=== PATIENT | female | born 1990 | race Two or more races ===

== ENCOUNTER → 2021-11-21 14:04 | Outpatient (BNVA) | payer OTHER, SELFPAY | PROVIDERS: Visit Provider Advanced Practice Midwife ==

== ENCOUNTER 2021-12-05 08:35 | Outpatient (REF) | payer OTHER, SELFPAY ==
[2021-12-06 13:51] LABS: CT PCR NOT DETECTED (Not Detect.); NG PCR NOT DETECTED (Not Detect.)
[2021-12-07 08:46] LABS: BV Int Neg Control Negative (Negative); BV Int Pos Control Positive (Positive)
[2021-12-09 07:42] LABS: HPV mRNA E6/E7 rflx Not Detected (Not Detected)
== END 2021-12-05 08:36 | disposition home or self-care (01) ==
LOC: HO.LAB 08:35
PROVIDERS: Visit Provider Advanced Practice Midwife
DX: Z12.4 Encounter for screening for malignant neoplasm of cervix (principal); Z11.51 Encounter for screening for human papillomavirus (HPV); Z20.2 Contact with and (suspected) exposure to infections with a predominantly sexual mode of transmission; E28.2 Polycystic ovarian syndrome; E66.01 Morbid (severe) obesity due to excess calories; Z87.42 Personal history of other diseases of the female genital tract
CPT/HCPCS: 87480; 87491; 87510; 87591; 87624; 87660; 88142

== ENCOUNTER 2022-12-17 09:40 | Outpatient (REF) | payer OTHER, SELFPAY ==
[2022-12-17 17:33] LABS: CT PCR NOT DETECTED (Not Detect.); NG PCR NOT DETECTED (Not Detect.)
[2022-12-18 11:19] LABS: BV Int Neg Control Negative (Negative); BV Int Pos Control Positive (Positive)
[2022-12-20 09:39] LABS: HPV mRNA E6/E7 rflx Not Detected (Not Detected)
== END 2022-12-17 09:41 | disposition home or self-care (01) ==
LOC: HO.LNP 09:40
PROVIDERS: Visit Provider Advanced Practice Midwife
DX: Z12.4 Encounter for screening for malignant neoplasm of cervix (principal); Z11.51 Encounter for screening for human papillomavirus (HPV); Z11.3 Encounter for screening for infections with a predominantly sexual mode of transmission; Z20.2 Contact with and (suspected) exposure to infections with a predominantly sexual mode of transmission
CPT/HCPCS: 0353U; 87480; 87510; 87624; 87660; 88142

== ENCOUNTER 2023-12-20 09:21 | Outpatient (AMB) | payer OTHER, SELFPAY ==
--- NOTE | 2023-12-20 09:24 | MHC.OFFVIS ---
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 she found this practice by Googleing it, she has very poor insurance through [employer]. She has a primary care provider, that she has never met that is in [place], whose visits with her are only by phone and she has been calling for appointments and she can never be seen and she has never ever seen the provider in-person. she has had lab work but it was more than a couple of years ago, that she had fasting lab work she was told in the past that she has pre diabetes and that she has PCOS she gets her period about every 3 months she uses condoms for control when she has sex. She was on metformin and something for blood pressure years ago but it never got refilled/reordered. She gets big bills when she does come here for things that were not covered by the insurance. She had a history of an abnormal Pap smear many years ago in 2013 but none since and her last 2 Pap smears here were negative. Would like testing for STIs she would like some basic testing if I can order it. [facility] Medical History Prediabetes History of irregular menstrual bleeding Obesity, morbid, BMI 40.0-49.9 PCOS (polycystic ovarian syndrome) Social History (Reviewed 12/20/23 @ 09:28 by Rehan Rubalcava [facility]) Alcohol intake: never Patient Tobacco Use Status: Former Tobacco user Tobacco use type: Cigarette Gender identity: Female Female Reproductive History Menstrual Age of Menarche: 10 Duration of menses: other Date of last menstrual period: 10/11/23 control method: none Total pregnancies: 0 Date of last pap smear: 12/18/22 (neg.previous pap,12/12/21,neg.) History of abnormal pap smear: Yes (2014,abn.pap) Physical Exam Vital Signs: Last Vital Signs BP 126/70 12/20/23 09:25 BMI result Body Mass Index 46.9 Const General: healthy appearing, comfortable, no acute distress, well developed and alert Nutritional Appearance: average body habitus and obese Orientation/consciousness: patient oriented x3 Limitations: no limitations HEENT Head: Yes normocephalic Neck Neck: Yes normal visual inspection Chest Chest palpation & inspection: normal inspection of the chest Breast/axilla inspection: normal inspection of the breasts and normal inspection of the axillae Breast/axilla palpation: normal palpation of the breasts and normal palpation of the axillae Resp Effort & Inspection: normal respiratory effort GI Inspection: Yes normal to inspection, No Abdominal wall edema and No distended Palpation (GI): Soft to palpation and nontender Other: Limited by adipose vagina normal discharge appears within normal limits possibly with start of menses. Cervix nulliparous long thick closed mobile nontender adnexa nontender uterus nontender though difficult to fully palpate secondary to adipose good tone with Kegel General: Yes bladder normal to palpation External Female Exam: normal external appearance and normal appearance of the urethra Speculum Exam - Vagina: normal appearance of the vagina, normal palpation and normal vaginal discharge Speculum Exam - Cervix: normal appearance of the cervix, normal palpation and nontender Bimanual exam- vagina & uterus: normal bimanual exam, normal palpation, uterine size normal, bladder normal to palpation, consistency normal, normal palpation, uterine mobility normal, uterine shape normal, No Cervical tenderness present, non-tender and no cervical motion tenderness Bimanual Exam- Adnexa, other: normal adnexae, no masses, normal and No adnexal tenderness Neuro General: patient oriented x3 Assessment & Plan Assessment & Plan (1) Prediabetes: Code(s): R73.03 - Prediabetes (2) Cervical cancer screening: Comment: 12/05/2021 Pap equals negative with negative HPV; 12/17/2022 Pap is negative with negative HPV. Code(s): Z12.4 - Encounter for screening for malignant neoplasm of cervix (3) Potential exposure to STD: Code(s): Z20.2 - Contact with and (suspected) exposure to infections with a predominantly sexual mode of transmission (4) History of irregular menstrual bleeding: Code(s): Z87.42 - Personal history of other diseases of the female genital tract (5) Obesity, morbid, BMI 40.0-49.9: Code(s): E66.01 - Morbid (severe) obesity due to excess calories (6) PCOS (polycystic ovarian syndrome): Code(s): E28.2 - Polycystic ovarian syndrome Plan -----Discussed in this visit the following: healthy balanced diet, regular and consistent exercise, getting recommended health screens, doing the best she can for her particular health concerns, kegel exercises, pap smear screening and followup recommendations, mammography screening and SBE, normal changes in cycles in her life stage--- . Discussed her long standing knowledge of her diagnosis of PCOS she has hirsutisum she is overweight she has the irregular periods and the pre diabetes.. She does not need any further testing to establish this diagnosis Much. of visit was spent exploring with the patient her apparent lack of access to comprehensive primary care that is meaningful to her and maybe helpful in helping her achieve life and health goals. the She by her history has a very hard time getting through to the office of her primary care provider she is never seen her personally and all cares by phone and she has not had fasting blood work that she should probably have in a prolonged amount of time. She has been getting bills for things that are not covered by her insurance so while she wanted blood work to check for HIV and other STDs I offered to minimally add on of fasting/random glucose to her labs if she is going anyway as well as a TSH she does not need workup for PCOS as she already has that diagnosis. I asked her to start keeping better track of her periods and anything she can do to help herself eat better and try to lose weight would be beneficial to her health because once the changes start happening they are very difficult to completely undo. She lives by herself she is 1 brother and his family in the area but they are moving to [place] and she works 2 jobs just to get by 1 at [employer] and then after that at [employer]. She says she has been told that she makes too much for [employer]. She has tried to get on the portal but has difficulty with it I asked her to call Saturday for the results of the blood tests I also suggested that she consider checking here at the [facility] for primary care and also the [facility] office site as she lives in [place] and works in the [employer]. Orders: Orders Glucose Random Today E28.2 - Polycystic ovarian syndrome, E66.01 - Morbid (severe) obesity due to excess calories, R73.03 - Prediabetes, Z12.4 - Encounter for screening for malignant neoplasm of cervix, Z20.2 - Contact with and (suspected) exposure to infections with a predominantly sexual mode of transmission, Z87.42 - Personal history of other diseases of the female genital tract HIV Ab/Ag Today E28.2 - Polycystic ovarian syndrome, E66.01 - Morbid (severe) obesity due to excess calories, R73.03 - Prediabetes, Z12.4 - Encounter for screening for malignant neoplasm of cervix, Z20.2 - Contact with and (suspected) exposure to infections with a predominantly sexual mode of transmission, Z87.42 - Personal history of other diseases of the female genital tract Syphilis Screen Today E28.2 - Polycystic ovarian syndrome, E66.01 - Morbid (severe) obesity due to excess calories, R73.03 - Prediabetes, Z12.4 - Encounter for screening for malignant neoplasm of cervix, Z20.2 - Contact with and (suspected) exposure to infections with a predominantly sexual mode of transmission, Z87.42 - Personal history of other diseases of the female genital tract Thyroid Stimulating Hormone Today E28.2 - Polycystic ovarian syndrome, E66.01 - Morbid (severe) obesity due to excess calories, R73.03 - Prediabetes, Z12.4 - Encounter for screening for malignant neoplasm of cervix, Z20.2 - Contact with and (suspected) exposure to infections with a predominantly sexual mode of transmission, Z87.42 - Personal history of other diseases of the female genital tract Hepatitis B Surface Antigen Today E28.2 - Polycystic ovarian syndrome, E66.01 - Morbid (severe) obesity due to excess calories, R73.03 - Prediabetes, Z12.4 - Encounter for screening for malignant neoplasm of cervix, Z20.2 - Contact with and (suspected) exposure to infections with a predominantly sexual mode of transmission, Z87.42 - Personal history of other diseases of the female genital tract Hepatitis C Antibody Today E28.2 - Polycystic ovarian syndrome, E66.01 - Morbid (severe) obesity due to excess calories, R73.03 - Prediabetes, Z12.4 - Encounter for screening for malignant neoplasm of cervix, Z20.2 - Contact with and (suspected) exposure to infections with a predominantly sexual mode of transmission, Z87.42 - Personal history of other diseases of the female genital tract CT NG by PCR Today Z01.419 - Encounter for gynecological examination (general) (routine) without abnormal findings Bacterial Vaginosis Panel Today Z20.2 - Contact with and (suspected) exposure to infections with a predominantly sexual mode of transmission Coding Level of Care Code Est Pt Prev Care 18-39y(69204) Diagnoses Prediabetes R73.03 Cervical cancer screening Z12.4 Potential exposure to STD Z20.2 History of irregular menstrual bleeding Z87.42 Obesity, morbid, BMI 40.0-49.9 E66.01 PCOS (polycystic ovarian syndrome) E28.2
[2023-12-20 09:25] VITALS: BP 126/70; BMI 46.9
== END 2023-12-20 10:39 | disposition home or self-care (01) ==
LOC: HO.HWSM 09:21
PROVIDERS: Visit Provider Advanced Practice Midwife
DX: Z01.419 Encounter for gynecological examination (general) (routine) without abnormal findings (principal); R73.03 Prediabetes; E28.2 Polycystic ovarian syndrome; Z20.2 Contact with and (suspected) exposure to infections with a predominantly sexual mode of transmission; Z87.42 Personal history of other diseases of the female genital tract; E66.01 Morbid (severe) obesity due to excess calories
CPT/HCPCS: 99395

== ENCOUNTER 2023-12-20 09:21 | Outpatient (REF) | payer OTHER, SELFPAY ==
[2023-12-20 13:53] LABS: Syphilis Screen Nonreactive (Nonreactive)
[2023-12-20 13:57] LABS: HBsAGNum1 0.29 S/CO (0.00-0.99); HIV AB/AG Nonreactive (Nonreactive); HIV Num 1 0.05 S/CO (0.00-0.99); Hepatitis B Surface Antigen Negative (Negative); ~HepC Num1 0.41 S/CO (0.00-0.79); ~Hepatitis C Antibody Nonreactive (Nonreactive)
[2023-12-20 14:06] LABS: Glucose Random 156 mg/dL (60-115)
[2023-12-20 14:13] LABS: Thyroid Stimulating Hormone 1.67 uIU/mL (0.32-4.0)
[2023-12-21 09:54] LABS: CT PCR NOT DETECTED (Not Detect.); NG PCR NOT DETECTED (Not Detect.)
[2023-12-21 11:38] LABS: BV Int Neg Control Negative (Negative); BV Int Pos Control Positive (Positive)
== END 2023-12-20 09:22 | disposition home or self-care (01) ==
LOC: HO.HHCL 09:21
PROVIDERS: Visit Provider Advanced Practice Midwife
DX: Z20.2 Contact with and (suspected) exposure to infections with a predominantly sexual mode of transmission (principal); R73.03 Prediabetes; E66.01 Morbid (severe) obesity due to excess calories; E28.2 Polycystic ovarian syndrome; Z87.42 Personal history of other diseases of the female genital tract
CPT/HCPCS: 0353U; 36415; 82947; 84443; 86780; 86803; 87340; 87389; 87480; 87510; 87660

== ENCOUNTER 2024-06-09 09:53 | Outpatient (REF) | payer OTHER, SELFPAY ==
[2024-06-10 03:44] LABS: CT PCR NOT DETECTED (Not Detect.); NG PCR NOT DETECTED (Not Detect.)
[2024-06-10 11:32] LABS: Bacterial Vaginosis PCR NEGATIVE (Negative); Candida Group PCR DETECTED (Not Detect); Candida glab krusei PCR NOT DETECTED (Not Detect); Trichomonas vaginalis PCR NOT DETECTED (Not Detect)
== END 2024-06-09 09:54 | disposition home or self-care (01) ==
LOC: HO.LAB 09:53
PROVIDERS: Visit Provider Advanced Practice Midwife
DX: N92.6 Irregular menstruation, unspecified (principal); E28.2 Polycystic ovarian syndrome
CPT/HCPCS: 0352U; 87491; 87591; 99212

== ENCOUNTER 2024-06-09 09:53 | Outpatient (AMB) | payer OTHER, SELFPAY ==
[2024-06-09 10:00] VITALS: BMI 46.9
--- NOTE | 2024-06-09 10:00 | MHC.OFFVIS ---
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 She has vaginal itching and it recurs frequently she does think it is a yeast infection. She used creams [id number] and they are not helping. Also she had a little black and brown discharge but her period is due. She says her periods come about every 2 months and her last 1 was April 11 so she is expecting it soon. She works 2 jobs she does not have time for exercise. She only recently got new health insurance through [email or web address] called well [employer] and she just got notification that she is going to be having her primary care provider at [facility] in [place] so she is waiting for that all go through she just got a number in the mail but she has not gotten the card yet I recommend she call to make her appointment even with the number so that she can get on the list for a primary care provider as soon as possible she has not had fasting blood work and a very long time. She lives by herself and does her own cooking. [facility] Medical History Prediabetes History of irregular menstrual bleeding Obesity, morbid, BMI 40.0-49.9 PCOS (polycystic ovarian syndrome) Social History Alcohol intake: never Patient Tobacco Use Status: Former Tobacco user Tobacco use type: Cigarette Gender identity: Female Female Reproductive History Menstrual Age of Menarche: 10 Duration of menses: 8-10 days Date of last menstrual period: 04/11/24 control method: none Total pregnancies: 0 Date of last pap smear: 12/18/22 (negative,previous pap 2021,neg.) History of abnormal pap smear: Yes (2014,abn.) Physical Exam Vital Signs: BMI result Body Mass Index 46.9 Assessment & Plan Assessment & Plan (1) Obesity, morbid, BMI 40.0-49.9: Code(s): E66.01 - Morbid (severe) obesity due to excess calories Category: Medical (2) Prediabetes: Code(s): R73.03 - Prediabetes Category: Medical (3) Vaginal itching: Comment: External vaginal discharge appears within normal limits and healthy. Will treat as yeast with Diflucan secondary to no improvement with OTC creams. Urged seeing new P[facility] a sap and being checked for her blood sugars etc. Code(s): N89.8 - Other specified noninflammatory disorders of vagina Category: Medical (4) Irregular menstruation, unspecified: Code(s): N92.6 - Irregular menstruation, unspecified Category: Medical (5) PCOS (polycystic ovarian syndrome): Code(s): E28.2 - Polycystic ovarian syndrome Category: Medical Plan Discussed that the black and brown discharge is most likely her impending menses any day now. Discussed the odor as being normal for anyone with extra adipose tissue in this heat. It did not sound emblemattic of anything pathologic or worrisome. Her vaginal discharge appears within normal limits but they external vulva is reddened consistent with possible mild yeast will treat with Diflucan for p.r.n. use urged not taking it more than rarely as necessary. Also urged her to be proactive in calling for an appointment with a new primary care provider so that she can be seen and assessed for her blood sugars as soon as possible. Additionally if she does not get a period for 3 months that that should be addressed and she should call for an appointment. She has a history of PCOS and irregular menses her periods come about every 2 months. We will see her for annual exams I wished her luck with trying to work on weight loss as it would benefit her health overall. Orders: Orders CT NG by PCR Today N89.8 - Other specified noninflammatory disorders of vagina Bacterial Vaginosis Panel Today N89.8 - Other specified noninflammatory disorders of vagina Medications: New fluconazole may repeat second dose 72 hrs after first dose if symptoms persist 150 mg PO Q3D 2 doses 2 tabs 3RF Coding Level of Care Code Est Pt Level 3 (33636) Diagnoses Obesity, morbid, BMI 40.0-49.9 E66.01 Prediabetes R73.03 Vaginal itching N89.8 Irregular menstruation, unspecified N92.6 PCOS (polycystic ovarian syndrome) E28.2
== END 2024-06-09 11:04 | disposition home or self-care (01) ==
PROVIDERS: Visit Provider Advanced Practice Midwife
DX: E66.01 Morbid (severe) obesity due to excess calories (principal); R73.03 Prediabetes; N89.8 Other specified noninflammatory disorders of vagina; N92.6 Irregular menstruation, unspecified; E28.2 Polycystic ovarian syndrome
CPT/HCPCS: 99213

== ENCOUNTER 2024-10-08 13:44 | Outpatient (AMB) | payer OTHER, SELFPAY ==
[2024-10-08 13:51] VITALS: BP 128/78; BMI 43.9
--- NOTE | 2024-10-08 13:51 | MHC.OFFVIS ---
Vital Signs 10/08/24 13:51 Height 5 ft 3 in Weight 248 lb BMI 43.9 BP 128/78 Intake Visit Reasons: STD Testing Manager Transportation Planning Required: No Manager Transportation Planning Services: Manager Transportation Planning Present Information Interpreted: clinical only Hardwood Faller: Hardwood Faller Present Allergies acetaminophen [From Tylenol] Allergy (Mild, Verified 10/08/24 13:53) itchhing, rash Medication List - Last Reconciled 10/08/24 by Susie Andrade CNM No Known Home Meds Is last menstrual period known: No (irregular) HPI HPI STD Testing: Details: Patient is here to get checked for vaginal discharge that is bothering her. She is worried that she could have something she took pictures of her discharge juice a mixture of campos and pink and mucousy. She does not get a regular period and has not in a long time she told me at her last visit that she gets her period every 2 months however now she cites her last period as being in June she was last sexually active in August. I asked her if she was concerned when she did not get a period in August and she indicated anxiety about that thought at this moment. I am asking the patient to submit a urine specimen for a test before proceed to be exam. She has an appointment for her new primary care provider December. Patient has lost from her highest in early part of 2022 weighing 269 and a BMI of 46+. To today's weight of 248 and a BMI of 43.9. She has been working night said her job and she eats very lightly 3 the nights and does not eat a lot of heavy foods and is eating fruits in salads and is noticing a difference. She would like to get checked for all STDs. She is concerned about her lack of period and she knows it is not good she has needed to take Provera in the past but the last time was in [place] and then her periods became more regular after that. She would like to be on a regular method of control. She is not planning sexual activity in the near future test done today during this visit was negative. [facility] Medical History Prediabetes History of irregular menstrual bleeding Obesity, morbid, BMI 40.0-49.9 PCOS (polycystic ovarian syndrome) Social History Alcohol intake: never Patient Tobacco Use Status: Former Tobacco user Tobacco use type: Cigarette Gender identity: Female Female Reproductive History Menstrual Age of Menarche: 10 Duration of menses: other control method: none Total pregnancies: 0 Full term: 0 Date of last pap smear: 12/18/22 (negative) History of abnormal pap smear: No Physical Exam Vital Signs: Last Vital Signs BP 128/78 10/08/24 13:51 BMI result Body Mass Index 43.9 Other: There was some thickness to the mucousy secretions obtained from her cervix they did not appear consistent with usual STIs but more like thickened normal cervical secretions. External Female Exam: normal external appearance Speculum Exam - Vagina: normal appearance of the vagina and normal vaginal discharge Speculum Exam - Cervix: normal appearance of the cervix Bimanual exam- vagina & uterus: normal bimanual exam, uterine size normal, consistency normal, uterine mobility normal, uterine shape normal and non-tender Bimanual Exam- Adnexa, other: normal adnexae, no masses and No adnexal tenderness Assessment & Plan Assessment & Plan (1) Irregular menstruation, unspecified: Code(s): N92.6 - Irregular menstruation, unspecified Category: Medical (2) PCOS (polycystic ovarian syndrome): Code(s): E28.2 - Polycystic ovarian syndrome Category: Medical (3) Obesity, morbid, BMI 40.0-49.9: Code(s): E66.01 - Morbid (severe) obesity due to excess calories Category: Medical (4) Potential exposure to STD: Code(s): Z20.2 - Contact with and (suspected) exposure to infections with a predominantly sexual mode of transmission Category: Medical (5) Cervical cancer screening: Comment: 12/05/2021 Pap equals negative with negative HPV; 12/17/2022 Pap is negative with negative HPV. Code(s): Z12.4 - Encounter for screening for malignant neoplasm of cervix Category: Medical (6) Problematic vaginal discharge: Code(s): N89.8 - Other specified noninflammatory disorders of vagina Category: Medical (7) History of irregular menstrual bleeding: Code(s): Z87.42 - Personal history of other diseases of the female genital tract Category: Medical (8) Prediabetes: Code(s): R73.03 - Prediabetes Category: Medical Plan Patient is here to get checked for vaginal discharge that is bothering her. She is worried that she could have something she took pictures of her discharge juice a mixture of campos and pink and mucousy. She does not get a regular period and has not in a long time she told me at her last visit that she gets her period every 2 months however now she cites her last period as being in June she was last sexually active in August. I asked her if she was concerned when she did not get a period in August and she indicated anxiety about that thought at this moment. I am asking the patient to submit a urine specimen for a test before proceed to be exam. She has an appointment for her new primary care provider December. Patient has lost from her highest in early part of 2022 weighing 269 and a BMI of 46+. To today's weight of 248 and a BMI of 43.9. She has been working night said her job and she eats very lightly 3 the nights and does not eat a lot of heavy foods and is eating fruits in salads and is noticing a difference. She would like to get checked for all STDs. She is concerned about her lack of period and she knows it is not good she has needed to take Provera in the past but the last time was in [place] and then her periods became more regular after that. She would like to be on a regular method of control. She is not planning sexual activity in the near future test done today during this visit was negative. Testing done during this visit gonorrhea chlamydia trichomoniasis as well as Gardnerella and Agnes. I shared with the patient that I suspect a whole to be negative but treat or offer treatment for what ever shows up I also at her request placed orders for HIV hepatitis B hepatitis C and syphilis. She is going to go downstairs to the lab now to get those done She is interested in getting a. I discussed her history of PCOS and offered her course of Provera to help bring on a withdrawal bleed AK a menses she is interested doing this. I told her to expect that this runs when it be heavy and it may also be very mucousy as that maybe part of what were seeing with the discharge that she had a picture of in her phone. I reviewed her menses in what they are often like after taking Provera for after they have not been there for a long time they normally last about 10 days and they start out light and then they have 5 day heavy period In the middle and then they lighten up. So I am recommending to her that she start the norethindrone OCPs around the time that her period is starting to get light and trail off. Also I am ordering a pelvic ultrasound to assess for any abnormality. We will have a follow-up visit after that to review all. She has been on control pills before knows how to take them. I did review that these control pills will not make her have a period every month the way the combination OCPs would have in the past but now that she is older this is often start women out on. We will have a follow-up visit after the ultrasound. She is traveling to [place] the visit [facility] from October 21 to the 05 of November so we will see her after that. Orders: Orders Hepatitis C Antibody Today Z20.2 - Contact with and (suspected) exposure to infections with a predominantly sexual mode of transmission CT NG by PCR Today N89.8 - Other specified noninflammatory disorders of vagina Bacterial Vaginosis Panel Today N89.8 - Other specified noninflammatory disorders of vagina Hepatitis B Surface Antigen Today Z20.2 - Contact with and (suspected) exposure to infections with a predominantly sexual mode of transmission HIV Ab/Ag Today Z20.2 - Contact with and (suspected) exposure to infections with a predominantly sexual mode of transmission Syphilis Screen Today Z20.2 - Contact with and (suspected) exposure to infections with a predominantly sexual mode of transmission US pelvic and transvaginal Today E28.2 - Polycystic ovarian syndrome, N92.6 - Irregular menstruation, unspecified, R73.03 - Prediabetes, Z12.4 - Encounter for screening for malignant neoplasm of cervix, Z87.42 - Personal history of other diseases of the female genital tract Medications: New norethindrone (contraceptive) 0.35 mg PO DAILY 84 tabs 4RF medroxyprogesterone (Provera) 10 mg PO DAILY 10 tabs 0RF Coding Level of Care Code Est Pt Level 3 (11811) Diagnoses Irregular menstruation, unspecified N92.6 PCOS (polycystic ovarian syndrome) E28.2 Obesity, morbid, BMI 40.0-49.9 E66.01 Potential exposure to STD Z20.2 Cervical cancer screening Z12.4 Problematic vaginal discharge N89.8 History of irregular menstrual bleeding Z87.42 Prediabetes R73.03
== END 2024-10-08 14:48 | disposition home or self-care (01) ==
LOC: HO.HWSM 13:45
PROVIDERS: Visit Provider Advanced Practice Midwife
DX: N92.6 Irregular menstruation, unspecified (principal); E28.2 Polycystic ovarian syndrome; E66.01 Morbid (severe) obesity due to excess calories; Z20.2 Contact with and (suspected) exposure to infections with a predominantly sexual mode of transmission; Z12.4 Encounter for screening for malignant neoplasm of cervix; N89.8 Other specified noninflammatory disorders of vagina; Z87.42 Personal history of other diseases of the female genital tract; R73.03 Prediabetes
CPT/HCPCS: 99213

== ENCOUNTER 2024-10-08 13:44 | Outpatient (REF) | payer OTHER, SELFPAY ==
[2024-10-09 03:23] LABS: Syphilis Screen Nonreactive (Nonreactive)
[2024-10-09 03:42] LABS: HBsAGNum1 0.37 S/CO (0.00-0.99); HIV AB/AG Nonreactive (Nonreactive); HIV Num 1 0.05 S/CO (0.00-0.99); Hepatitis B Surface Antigen Negative (Negative); ~Hepatitis C Antibody Nonreactive (Nonreactive)
[2024-10-09 06:38] LABS: CT PCR NOT DETECTED (Not Detect.); NG PCR NOT DETECTED (Not Detect.)
[2024-10-09 08:36] LABS: Bacterial Vaginosis PCR NEGATIVE (Negative); Candida Group PCR DETECTED (Not Detect); Candida glab krusei PCR NOT DETECTED (Not Detect); Trichomonas vaginalis PCR NOT DETECTED (Not Detect)
== END 2024-10-08 13:45 | disposition home or self-care (01) ==
LOC: HO.LAB 13:44
PROVIDERS: Visit Provider Advanced Practice Midwife
DX: Z20.2 Contact with and (suspected) exposure to infections with a predominantly sexual mode of transmission (principal); N89.8 Other specified noninflammatory disorders of vagina; N92.6 Irregular menstruation, unspecified; E28.2 Polycystic ovarian syndrome; E66.01 Morbid (severe) obesity due to excess calories; Z87.42 Personal history of other diseases of the female genital tract; R73.03 Prediabetes
CPT/HCPCS: 0352U; 86780; 86803; 87340; 87389; 87491; 87591; 99212

== ENCOUNTER 2024-10-08 15:00 | Outpatient (REF) | payer OTHER, SELFPAY | END 2024-10-08 15:01 | disposition home or self-care (01) | LOC: HO.HHCL 15:00 | PROVIDERS: Visit Provider Advanced Practice Midwife | DX: Z13.89 Encounter for screening for other disorder (principal) ==

== ENCOUNTER 2024-12-22 11:25 | Outpatient (AMB) | payer OTHER, SELFPAY ==
--- NOTE | 2024-12-22 11:29 | A.OFFVIS_ITS ---
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 She was seen in October and there was a discussion about her history of amenorrhea. She has a history of PCOS. She was given a course of Provera and she did get a period after and it was heavy and because she was also looking for method of control anticipating that she may become sexually active she was given norethindrone OCPs to start after bleeding commenced. She did bleed after the Provera she started the control pills per the discussion but she says she has not had a periods since. She did become sexually active with any partner she feels like it is a good relationship so far and they been together for a month and a half, and things seem good. 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 She was happy to note that she has lost weight and she has gone down in her clothing size from size 20 to size 16. [facility] Medical History (Updated 12/22/24 @ 12:21 by Susie Andrade CNM) Prediabetes History of irregular menstrual bleeding Obesity, morbid, BMI 40.0-49.9 PCOS (polycystic ovarian syndrome) Social History Alcohol intake: never Patient Tobacco Use Status: Former Tobacco user Tobacco use type: Cigarette Gender identity: Female Female Reproductive History Menstrual Age of Menarche: 10 control method: pills Full term: 0 Date of last pap smear: 12/18/1922 (negative) Physical Exam Vital Signs: Last Vital Signs BP 116/70 12/22/24 11:36 BMI result Body Mass Index 42.5 Const General: healthy appearing, comfortable, no acute distress, well developed and alert Nutritional Appearance: average body habitus Orientation/consciousness: patient oriented x3 Limitations: no limitations HEENT Head: Yes normocephalic Neck Neck: Yes normal visual inspection Chest Chest palpation & inspection: normal inspection of the chest Breast/axilla inspection: normal inspection of the breasts and normal inspection of the axillae Breast/axilla palpation: normal palpation of the breasts and normal palpation of the axillae Resp Effort & Inspection: normal respiratory effort GI Inspection: Yes normal to inspection, No Abdominal wall edema and No distended Palpation (GI): Soft to palpation and nontender Other: Vagina is pink and moist and there is a pinkish reddish mucousy discharge consistent with either start of menses or possible midcycle ovulatory spotting however patient says she has not miss any OCPs since she started them in October. Cervix is pink smooth mobile nontender uterus small anteverted slightly difficult to feel secondary to adipose but mobile and nontender adnexa nontender good muscle tone with kegel. General: Yes bladder normal to palpation External Female Exam: normal external appearance and normal appearance of the urethra Speculum Exam - Vagina: normal appearance of the vagina, normal palpation and normal vaginal discharge Speculum Exam - Cervix: normal appearance of the cervix, normal palpation and nontender Bimanual exam- vagina & uterus: normal bimanual exam, normal palpation, uterine size normal, bladder normal to palpation, consistency normal, normal palpation, uterine mobility normal, uterine shape normal, No Cervical tenderness present, non-tender and no cervical motion tenderness Bimanual Exam- Adnexa, other: normal adnexae, no masses, normal and No adnexal tenderness Neuro General: patient oriented x3 Assessment & Plan Assessment & Plan (1) PCOS (polycystic ovarian syndrome): Code(s): E28.2 - Polycystic ovarian syndrome Category: Medical (2) Obesity, morbid, BMI 40.0-49.9: Code(s): E66.01 - Morbid (severe) obesity due to excess calories Category: Medical (3) History of irregular menstrual bleeding: Comment: Periods of amenorrhea consistent with PCOS, Code(s): Z87.42 - Personal history of other diseases of the female genital tract Category: Medical (4) Cervical cancer screening: Comment: 12/05/2021 Pap equals negative with negative HPV; 12/17/2022 Pap is negative with negative HPV. Code(s): Z12.4 - Encounter for screening for malignant neoplasm of cervix Category: Medical Plan -----Discussed in this visit the following: healthy balanced diet, regular and consistent exercise, getting recommended health screens, doing the best she can for her particular health concerns, kegel exercises, pap smear screening and followup recommendations, mammography screening and SBE, normal changes in cycles in her life stage--- . Discussed that on these control pills progestin only pills it may be possible to not get a period but at least there is some protection from buildup of a thickened lining. Additionally she needs control because she does not want to get at this time. It is a new relationship and they maybe open in the future, but is not topic at hand currently , Discussed that after she gets the ultrasound we may have discussions about other control methods depending on where she is her control journey I did mentioned in the Mirena IU S which can offer long-term protection from the buildup of the thickened lining secondary to amenorrhea from PCOS . Also congratulated her on her weight loss efforts and success and discussed potential pitfalls. She will schedule the ultrasound when it is convenient for her and her work schedule and we will have a tele visit if everything is okay afterwards she says she has a enough pills for year. Patient was very clear that she has not missed any control pills so it is unlikely that this is midcycle ovulatory mucus with spotting and may represent a very light menses that she is starting currently at the visit. The mucus and blood tinge fluid coming from the cervix appeared normal and healthy. Testing ordered for other STDs as she would like to just double check. She will be meeting her new primary care provider at [facility] in January. She says she is on the portal so she get her lab results there. Patient to schedule the ultrasound that was ordered in October Tele visit after if convenient for her Labs and she wishes Patient Status Orders: Orders Hepatitis B Surface Antigen Today E28.2 - Polycystic ovarian syndrome, E66.01 - Morbid (severe) obesity due to excess calories, Z11.3 - Encounter for screening for infections with a predominantly sexual mode of transmission, Z12.4 - Encounter for screening for malignant neoplasm of cervix, Z87.42 - Personal history of other diseases of the female genital tract Hepatitis C Antibody Today E28.2 - Polycystic ovarian syndrome, E66.01 - Morbid (severe) obesity due to excess calories, Z11.3 - Encounter for screening for infections with a predominantly sexual mode of transmission, Z12.4 - Encounter for screening for malignant neoplasm of cervix, Z87.42 - Personal history of other diseases of the female genital tract Syphilis Screen Today E28.2 - Polycystic ovarian syndrome, E66.01 - Morbid (severe) obesity due to excess calories, Z11.3 - Encounter for screening for infections with a predominantly sexual mode of transmission, Z12.4 - Encounter for screening for malignant neoplasm of cervix, Z87.42 - Personal history of other diseases of the female genital tract HIV Ab/Ag Today E28.2 - Polycystic ovarian syndrome, E66.01 - Morbid (severe) obesity due to excess calories, Z11.3 - Encounter for screening for infections with a predominantly sexual mode of transmission, Z12.4 - Encounter for screening for malignant neoplasm of cervix, Z87.42 - Personal history of other d iseases of the female genital tract Coding Level of Care Code Est Pt Prev Care 18-39y(78698) Diagnoses PCOS (polycystic ovarian syndrome) E28.2 Obesity, morbid, BMI 40.0-49.9 E66.01 History of irregular menstrual bleeding Z87.42 Cervical cancer screening Z12.4
[2024-12-22 11:36] VITALS: BP 116/70; BMI 42.5
--- OUTSIDE RECORDS SUMMARY | 2024-12-22 12:41 | XMS_ITS | Data Portability ---
Author Organization [place] - [facility], CC043_(BCBS) [facility] Address [address] [place] [address] Assessment No assessment recorded. Plan of Treatment Reminders Order Date Submit Date Provider Last Modified By Organization Details Last Modified Time Details Appointments None recorded. Lab FSH (follicle- stimulatin g hormone), serum 2017 018 DMITRIY Cooper (Lab), [address] [place], [address], 8 06:40:39 lh (luteinizi ng hormone), serum 2017 018 DMITRIY Marilyn Cooper (Lab), [address] [place], [address], 8 06:40:40 estradiol, free, serum 2017 018 DMITRIY Marilyn Cooper (Lab), [address] [place], [address], 8 06:40:38 glucose, fasting, QN, serum or plasma 2017 [facility] [address] [place], [address], 8 06:40:37 insulin, serum 2017 018 [facility] [address] [place], [address], 8 06:40:39 dhea-sulfa te, serum 2017 018 [facility] (Lab), [address] [place], [address], 8 06:40:40 testostero ne, free + total, serum 2017 018 [facility] (Lab), [address] [place], [address], 8 06:39:17 prolactin, serum 2017 018 [facility] (Lab), [address] [place], [address], 8 06:40:38 17-hydroxy progestero ne, QN, serum 2017 018 [facility] (Lab), [address] [place], [address], 8 06:39:17 cortisol, serum (acth stimulatio n test) 2017 018 [facility] (Lab), [address] [place], [address], 8 06:40:37 TSH, serum or plasma 2017 018 [facility] (Lab), [address] [place], [address], 8 06:40:[address]/dietiti an referral 2017 018 [facility], [address] [facility], [facility] [address], [address], 8 15:15:22 Procedures None recorded. Surgeries None recorded. Imaging None recorded. Medication Orders None recorded. Patient TargetsNo targets recorded. Patient Instructions Encounter Date Encounter Id Patient Instructions Last Modified By Organization Details Last Modified Time 05/22/2018 [id number] I instructed patient to return PCOS fasting labs. She reports that she has never had labs done and she has never been told what her diagnosis. I told her that she had PCOS. 30 minute consultation I strongly encouraged her to lose weight and to continue with metformin. I wanted her to see the bariatric surgeons/clinic because of her morbid obesity but she declined. I gave her the contact information for [facility] for nutritional counseling and treatment. We discussed that a at her weight is very high risk and that weight loss would be the best this for her prior to achieving . I would consider fertility referral in the future but I believe weight loss is miller to her overall health and success with achieving a healthy . [email or web address] Not available 05/22/2018 16:59:24 Reason for Referral Catering Manager/dietitian Refer ral for Obesity Referring Physician: Gio Heller, Gynecology, Encounter Date: 05/22/2018 Results Created Date Observation Date Name Description Value Unit Range Abnormal Flag Note LastModifiedBy Organization Detail LastModifiedTime 06/17/20 18 06/17/2018 gluco se, fasti ng, QN, serum or plasm a glucose, fasting 102 mg/dL 70-100 high Not Available Romeo Cooper (Lab) [address] [place], [address], 06/19/2018 06:40:37 06/17/20 18 06/17/2018 corti isidro, serum (acth stimu latio n test) cortisol, random 11.3 ug/dL 11-De oxyco rtiso l cross -reac ts to a poten tiall y signi fican t degre e with this assay . Corti sone and Predn isolo ne may also cross -reac t to a lesse r degre e. Not Available Marilyn Cooper (Lab) [address] [place], [address], 06/19/2018 06:40:37 06/17/20 18 06/17/2018 TSH, serum or plasm a TSH (3rd IS) assay 5.04 uIU/m L 0.45-5 .33 Refer ence Range s for Pregn ant Femal es: 1st Trime ster 0.05- 3.70 uIU/m L 2nd Trime ster 0.31- 4.35 uIU/m L 3rd Trime ster 0.41- 5.18 uIU/m L Not Available [facility] [address] [place], [address], 06/19/2018 06:40:38 06/17/20 18 06/17/2018 prola ctin, serum prolactin 6.04 NG/mL 3.34-2 6.72 Resul ts based on 3rd inter natio nal stand elizabeth. Not Available [facility] (Lab) [address] [place], [address], 06/19/2018 06:40:38 06/17/20 18 06/17/2018 estra diol, free, serum estradiol 73 pg/mL Estra diol refer ence range s: Mid-f ollic ular phase : 27-12 2 pg/ml Mid-l uteal phase : 49-29 1 pg/ml Perio vulat ory: 95-43 3 pg/ml Postm enopa usal femal es: <40 pg/ml Estra diol resul ts stand ardiz ed to ID-GC MS metho d. Not Available [facility] (Lab) [address] [place], [address], 06/19/2018 06:40:38 06/17/20 18 06/17/2018 insul in, serum insulin 11.9 uIU/m L 1.9-23 .0 Not Available [facility] (Lab) [address] [place], [address], 06/19/2018 06:40:39 06/17/20 18 06/17/2018 FSH (foll icle- stimu latin g hormo ne), serum FSH 5.38 mIU/m L Folli joseph Stimu latin g Hormo ne (FSH) femal e refer ence range : Mid-f ollic ular phase : 3.85- 8.78 mIU/m l Mid-c ycle peak: 4.54- 22.51 mIU/m l Mid-l uteal phase : 1.79- 5.12 mIU/m l Postm enopa usal: 16.74 -113. 59 mIU/m l Resul ts based on WHO 2nd inter natio nal stand elizabeth. Not Available [facility] [address] [place], [address], 06/19/2018 06:40:39 06/17/20 18 06/17/2018 lh (lute inizi ng hormo ne), serum LH 4.86 mIU/m L Lutei nizin g Hormo ne (LH) femal e refer ence range : Mid-f ollic ular phase : 2.12- 10.89 mIU/m L Mid-c ycle peak: 19.18 -103. 03 mIU/m L Mid-l uteal phase : 1.20- 12.86 mIU/m L Postm enopa usal: 10.87 -58.6 4 mIU/m L Resul ts based on WHO 2nd inter natio nal stand elizabeth. Not Available [facility] (Lab) [address] [place], [address], 06/19/2018 06:40:40 06/17/20 18 06/17/2018 dhea- sulfa te, serum DHEA-sulfate 156.0 ug/dL 84.8-3 78.0 [facility] [address] [facility] [address] Not Available [facility] [address] [facility] [place], [address], 06/19/2018 06:40:40 06/17/20 18 06/17/2018 testo stero ne, free + total , serum testosterone , serum 27 NG/dL 8-48 [facility] [address] [facility] [address] Not Available [facility] Kenneth (Lab) [address] [facility] [place], [address], 06/20/2018 06:39:16 06/17/20 18 06/17/2018 testo stero ne, free + total , serum testost., % free+weakly bound 30.6 % 3.0-18 .0 high Chand[address] sm[address] [address] Not Available [facility] (Lab) [address] [place], [address], 06/20/2018 06:39:16 06/17/20 18 06/17/2018 testo stero ne, free + total , serum testost., F+W bound 8.3 NG/dL 0.0-9. [address] [address] Not Available [facility] (Lab) [address] [place], [address], 06/20/2018 06:39:16 06/17/20 18 06/17/2018 17-hy droxy proge stero ne, QN, serum 17-oh progesterone 28 NG/dL Adult Femal e Folli cular 15 - 70 Lutea l 35 - 290 This test was devel oped and its perfo rmanc e sulema cteri stics deter mined by [facility]. It has not been clear ed or appro [place] by the Food and Drug Admin istra tion. Chandu smith[address] [address] Not Available [facility] (Lab) [address] [place], [address], 06/20/2018 06:39:17 Result Notes None recorded. Problems No Known Problems Procedures Surgical History Date Name Laterality Status Provider Name and Address Organization Details Recorded Time 01/02/2018 Date of Last Pap Smear completed Jillian Hickman (JOLIE) [facility] 05/22/2018 14:03:56 Imaging Results None recorded. Procedure Notes None recorded. Medical Equipment None Reported. Allergies Allergen ID Allergen Name Allergen Category Reaction Reaction Severity Criticality Documentation Date Start Date Code Code System Note Provider Name and Address Organization Details Recorded Time 765781 acetamino phen medicatio n itching respirato ry distress Not available Not available Not available 05/22/2018 161 RxNorm Jillian Hickman (TERMED) [facility] 8 14:02:30 Medications Name Sig Start Date Stop Date Status Note LastModified by Organization Details LastModified Time oseltamivir 75 mg capsule 05/22 completed Not Available Not Available Not Available omeprazole 20 mg capsule,mando yed release TAKE 1 CAPSULE BY MOUTH ONCE DAILY FOR 30 DAYS active Not Available Not Available No t Available ondansetron 4 mg disintegrati ng tablet 05/22 completed Not Available Not Available Not Available metformin ER 500 mg tablet,exten ded release 24 hr active Not Available Not Available Not Available phentermine 37.5 mg capsule Take 1 capsule every day by oral route. active Not Available Not Available No t Available Pneumovax-23 25 mcg/0.5 mL injection syringe 05/22 completed Not Available Not Available Not Available multivitamin active Not Available Not Available Not Available Fluzone Quad (PF) 60 mcg(15 mcgx4)/0.5 mL intramuscula r syringe 05/22 completed Not Available Not Available Not Available Vitals Date Recorded Body height Body mass index (BMI) Body weight Systolic blood pressure Diastolic blood pressure Provider Name and Address Organization Details Last Updated DateTime 05/22/2018 154.94 cm 50.1 kg/m2 255116.9 8 g 120 mm[Hg] 70 mm[Hg] Jillian Hickman (TERMED) [facility] 8 14:01:53 Social History Question Answer Notes LastModified by Organizat ion Details LastModified Time Tobacco Smoking Status Current Every Day Smoker Jillian Hickman (TERMED) [facility], [facility] 05/22/2018 13:28:35 What Is Your Level Of Alcohol Consumption? None Information not available 05/22/2018 Which Illicit Or Recreational Drugs Have You Used? Denies Information not available 05/22/2018 Marital Status Single Informatio n not available 05/22/2018 What Was The Date Of Your Most Recent Tobacco Screening? 05/22/2018 Information not available 05/28/2019 Seat Belts Used Routinely Yes Information not available 05/22/2018 Are You Sexually Active? Yes Information not available 05/22/2018 How Much Tobacco Do You Smoke? 0.5 PPD Information not available 05/22/2018 Sex: Unknown Functional Status None recorded. Mental Status None recorded. Family History Relationship Description Onset Age of this Age Resolved Age Notes LastModified by Organization Details LastModified Time Mother Heart disease [email or web address] Not available 2017 13:32:51 Mother Diabetes mellitus kdrakage Not available 2017 13:33:17 Mother Cerebrovascu lar accident kdrakage Not available 13:33:27 Father Hypertensive disorder kdrakage Not available 2017 13:33:02 Father Diabetes mellitus kdrakage Not available 2017 13:33:16 Medical History Condition Response Neurology- Headaches/Migraines Y Gynecological History Statement/Question Response Current Control Method: None History of Infertility Y Date of Last Pap Smear 01/02/2018 Sexually Active Y Date of LMP 05/20/2018 History of Abnormal PAP Y Age at Menarche: 10 Obstetrics History GPAL:G 0 P 0 0 0 0 Past Encounters Encounter ID Performer Location Encounter Start Date Encounter Closed Date Diagnosis/Indication Diagnosis SNOMED-CT Code Diagnosis ICD10 Code Diagnosis Note [id number] [id number] [address] [place] [address] 05/22/2018 12:56:03 05/22/2018 14:38:20 Oligomenorrhea 76783516 N91.5 Primary infertility 2971 16536 N97.0 Obesity 278599487 E66.9 [id number] NAI BURNS [id number] E [facility] [address] [facility] [address] [place] [address] 11/26/2019 13:46:15 11/28/2019 08:15:37 [id number] NAI BURNS [id number] E MOYA T[address] [address] [place] [address] 12/02/2019 13:51:21 12/08/2019 21:01:41 Health Concerns Section Related Observation LastModified by Organization Detai ls LastModified Time None Recorded Concern Status LastModified by Organization Details LastModified Time None Recorded Advance Directives Directive None Recorded Payers Encounter Date Sequence Insurance Name Policy Number Policy Narayan Covered Member ID Narayan Member ID Guarantor Name 05/22/2018 1 [facility]: [employer] ([place]) [id number] Roxy santana [id number] Roxy Tobar ro Notes Date Note Type Note Provider Name and Address Organization Details Recorded Time 05/22/2018 text/html Infertility ([facility])Reported bypatient.Patient presents for:new problem Referred By:self *Location:female *Quality:due to anovulation/oligo vulation (she restarted metformin and phentermine prescribed by Dr. Verdin about 2 months ago.) *Severity:not applicable *Duration of Unprotected Wilson[place]:>4 years *Onset/Timing:inf ertility for >1 year; LMP: (May 13) *Context:premenop ausal yes; obesity yes Diagnostic Testing:none that she is aware of *Associated Signs & Symptoms:no abdominal pain; no pelvic pain; no dysmenorrhea;hirs utism;weight gain(she has only lost 3 pounds on phentermine for the last 2 months) *Modifying Factors:unchanged with medications, supplements, or steroids GIO HELLER MD [address] [place] [address],[address], [place], [address], Counts include 234 beds at the [facility] 05/22/2018 17:03:04 OBGyn Episode No OBEpisode recorded.
--- OUTSIDE RECORDS SUMMARY | 2024-12-22 12:41 | XMS_ITS | Clinical Summary ---
Author Organization [facility] ity Address [address] [place] [address] Care Team Providers Care Core Shaper Name Role Phone Kristyn Castillo MD Primary Care Provider [phone] Social History Tobacco Use Types Packs/Day Years Used Date Smoking Tobacco: Never Assessed Comments Unknown Sex and Gender Information Value Date Recorded Sex Assigned at Not on file Legal Sex Female 11:37 AM EDT Gender Identity Not on file Sexual Orientation Not on file Plan of Treatment Upcoming Encounters Date Type Department Care Team (Late st Contact Info) Description 01/07/2025 9:30 AM EST Office Visit Adult Medicine [address] [address] Kristyn Castillo MD [address] [place] [address] Health Maintenance Due Date Last Done Comments DTaP,Tdap,and Td Vaccines (1 - Tdap) 2007 Hepatitis B Vaccines (1 of 3 - 19+ 3-dose series) 2007 Cervical Cancer Screening: P ap Smear 2009 COVID-19 Vaccine ( - 2023-2 5 season) 2024 Influenza Vaccine (#1) 2024 Depression Screening 08/29/2024 HIV Screening 08/29/2024 Hepatitis C Screening 08/29/2024 Social Influencers of Health Screening 08/29/2024 HIB Vaccines Aged Out No longer eligi ble based on patient's age to complete this topic HPV Vaccines Aged Out No longer eligi ble based on patient's age to complete this topic Hepatitis A Vaccines Aged Out No long er eligible based on patient's age to complete this topic IPV Vaccines Aged Out No longer eligi ble based on patient's age to complete this topic MMR Vaccines Aged Out No longer eligi ble based on patient's age to complete this topic Meningococcal ACWY Vaccine Aged Out N o longer eligible based on patient's age to complete this topic Meningococcal B Vacine Aged Out No lo nger eligible based on patient's age to complete this topic Pneumococcal Vaccine: Pediat rics (0 to 5 Years) and At-Risk Patients (6 to 64 Years) Aged Out No longer eligible b ased on patient's age to complete this topic RSV Immunization Patients Un shilpi 20 months Aged Out No longer eligible b ased on patient's age to complete this topic Varicella Vaccines Aged Out No longer eligible based on patient's age to complete this topic Care Teams Core Shaper Relationship Specialty Start Date End Date Kristyn Castillo MD [address] [place] [address] PCP - General Internal Medicine 10/09/24
== END 2024-12-22 13:09 | disposition home or self-care (01) ==
PROVIDERS: Visit Provider Advanced Practice Midwife
DX: Z01.419 Encounter for gynecological examination (general) (routine) without abnormal findings (principal); E28.2 Polycystic ovarian syndrome; E66.01 Morbid (severe) obesity due to excess calories; Z87.42 Personal history of other diseases of the female genital tract
CPT/HCPCS: 99395; 99459

== ENCOUNTER 2024-12-22 11:25 | Outpatient (REF) | payer OTHER, SELFPAY ==
--- OUTSIDE RECORDS SUMMARY | 2024-12-22 14:17 | XMS_ITS | Clinical Summary ---
Author Organization [facility] ity Address [address] [place] [address] Care Team Providers Care Psychiatric Technician Name Role Phone Kristyn Castillo MD Primary Care Provider [phone] Social History Tobacco Use Types Packs/Day Years [...] 9:30 AM EST Office Visit Adult Medicine [address] [address] Kristyn Castillo MD [address] [place] [address] Health Maintenance Due Date Last Done Comments [...] age to complete this topic Care Teams Psychiatric Technician Relationship Specialty Start Date End Date Kristyn Castillo MD [address] [place] [address] PCP - General Internal Medicine 10/09/24
[2024-12-23 02:37] LABS: CT PCR NOT DETECTED (Not Detect.); NG PCR NOT DETECTED (Not Detect.)
[2024-12-23 11:17] LABS: Bacterial Vaginosis PCR NEGATIVE (Negative); Candida Group PCR NOT DETECTED (Not Detect); Candida glab krusei PCR NOT DETECTED (Not Detect); Trichomonas vaginalis PCR NOT DETECTED (Not Detect)
== END 2024-12-22 11:26 | disposition home or self-care (01) ==
LOC: HO.LAB 11:25
PROVIDERS: Visit Provider Advanced Practice Midwife
DX: N89.8 Other specified noninflammatory disorders of vagina (principal); Z20.2 Contact with and (suspected) exposure to infections with a predominantly sexual mode of transmission
CPT/HCPCS: 81515; 87491; 87591

== ENCOUNTER 2024-12-22 12:26 | Outpatient (REF) | payer OTHER, SELFPAY ==
--- OUTSIDE RECORDS SUMMARY | 2024-12-22 13:18 | XMS_ITS | Clinical Summary ---
Author Organization [facility] ity Address [address] [place] [address] Care Team Providers Care Vending Machine Attendant Name Role Phone Kristyn Castillo MD Primary Care Provider [phone] Social History Tobacco Use Types Packs/Day Years [...] 9:30 AM EST Office Visit Adult Medicine [address] [address] Kristyn Castillo MD [address] [place] [address] Health Maintenance Due Date Last Done Comments [...] age to complete this topic Care Teams Vending Machine Attendant Relationship Specialty Start Date End Date Kristyn Castillo MD [address] [place] [address] PCP - General Internal Medicine 10/09/24
--- OUTSIDE RECORDS SUMMARY | 2024-12-22 13:18 | XMS_ITS | Data Portability ---
Author Organization [place] [facility], CC021_(BCBS) SURGERY SUITE Address [address] [place] [address] Assessment No assessment recorded. Plan of Treatment Reminders Order Date Submit Date Provider Last Modified By Organization Details Last Modified Time Details Appointments None recorded. Lab pap, IG + CT/NG + HR HPV 2019 020 [place] Marilyn Cooper (Lab), [address] [place], [address], 0 16:35:53 glucose, fasting, QN, serum or plasma 2019 020 [facility] [address] [place], [address], 0 20:40:35 TSH, serum or plasma 2019 020 [facility] ([facility] [address] [place], [address], 0 20:40:32 thyroxine, free index, serum 2019 020 [facility] [address] [place], [address], 0 20:40:32 testostero ne, total, serum 2019 020 [facility] [address] [place], [address], 0 20:40:32 dhea-sulfa te, serum 2019 020 [email or web address] [facility] (Lab), [address] [place], [address], 0 11:53:11 prolactin, serum 2019 020 [facility] (Lab), [address] [place], [address], 0 20:40:34 HBsAg (hepatitis B surface Ag), serum 2019 020 [facility] (Lab), [address] [place], [address], 0 20:40:34 HIV (1+2) Ab screen, serum 2019 020 [facility] (Lab), [address] [place], [address], 0 20:40:34 RPR (rapid plasma reagin), serum 2019 020 [facility] (Lab), [address] [place], [address], 0 20:40:33 hsv (1+2) igg Ab, serum 2019 020 [facility] (Lab), [address] [place], [address], 0 20:40:36 hepatitis C virus Ab, serum 2019 [facility] (Lab), [address] [place], [address], 0 20:40:35 rubella Ab, serum 2019 020 [facility] (Lab), [address] [place], [address], 0 20:40:33 Referral None recorded. Procedures None recorded. Surgeries None recorded. Imaging None recorded. Medication Orders None recorded. Patient TargetsNo targets recorded. Patient InstructionsNo instructions recorded. Reason for Referral None Reported. Results Created Date Observation Date Name Description Value Unit Range Abnormal Flag Note LastModifiedBy Organization Detail LastModifiedTime 11/26/19 20 11/26/2019 TSH, serum or plasm a TSH (3rd IS) assay 2.38 uIU/m L 0.45-5 .33 Refer ence Range s for Pregn ant Femal es: 1st Trime ster 0.05- 3.70 uIU/m L 2nd Trime ster 0.31- 4.35 uIU/m L 3rd Trime ster 0.41- 5.18 uIU/m L Not Available [facility] Cooper (Lab) [address] [place], [address], 11/29/2019 20:40:32 11/26/19 20 11/26/2019 testo stero ne, total , serum testosterone , total 28 NG/dL 10-75 Not Available [facility] (Lab) [address] [place], [address], 11/29/2019 20:40:32 11/26/19 20 11/26/2019 thyro xine, free index , serum T4, free 0.92 NG/dL 0.57-1 .12 Refer ence Range s for Pregn ant Femal es: 1st Trime ster 0.47- 1.27 ng/dL 2nd Trime ster 0.40- 1.08 ng/dL 3rd Trime ster 0.45- 1.23 ng/dL Not Available [facility] (Lab) [address] [place], [address], 11/29/2019 20:40:32 11/26/19 20 11/26/2019 rubel la Ab, serum rubella screen <10.0 Not-I mmune (non- react omari) <10 IU/mL Not-I mmunu e (equi vocal ) >=10 IU/mL and <15 IU/mL Immun e (reac tive) >=15 IU/mL The follo wing resul ts were obtai dara with the Acces s Rubel la IgG EIA. Despi te calib ratio n by means of a refer ence prepa ratio n, value s obtai dara with diffe rent manuf actur er's assay metho ds may not be used inter butt eably . The magni tude of the repor tony IgG level canno t be corre lated to an endpo int titer . Not Available [facility] (Lab) [address] [place], [address], 11/29/2019 20:40:33 11/26/19 20 11/26/2019 RPR (rapi d plasm a reagi n), serum syphilis screen with reflex confirmation NONREA CTIVE nonrea ctive T.pal lidum IgG/I gM antib kamini is not detec tony. No serol ogica l evide nce of syphi lis. Recen t infec tion, early syphi lis, or low level s of T.pal lidum antib kamini canno t be ruled out. Not Available [facility] (Lab) [address] [place], [address], 11/29/2019 20:40:33 11/26/19 20 11/26/2019 prola ctin, serum prolactin 4.14 NG/mL 3.34-2 6.72 Not Available [facility] (Lab) [address] [place], [address], 11/29/2019 20:40:34 11/26/19 20 11/26/2019 HBsAg (hepa titis B surfa ce Ag), serum hepatitis B surface antigen NEGATI VE negati ve Negat omari/N onrea ctive Scree aydee assay ; Posit omari and Equiv ocal resul ts to be confi rmed by HBV DNA Quant itati ve PCR. Not Available [facility] (Lab) [address] [place], [address], 11/29/2019 20:40:34 11/26/19 20 11/26/2019 HIV (1+2) Ab scree n, serum HIV Ag/Ab NONREA CTIVE non-re active HIV testi ng perfo rmed by FDA appro [place] 4th gener ation Ag/Ab combo chemi lumin escen t scree aydee metho d. Not Available [facility] (Lab) [address] [place], [address], 11/29/2019 20:40:34 11/26/19 20 11/26/2019 hepat itis C virus Ab, serum hepatitis C antibody NEGATI VE negati ve Negat omari/N onrea ctive Chemi lumin escen t scree aydee assay . Posit omari and equiv ocal resul ts to be confi rmed by RNA nucle ic acid testi ng with refle x to quant itati ve PCR. Not Available [facility] (Lab) [address] [place], [address], 11/29/2019 20:40:35 11/26/19 20 11/26/2019 gluco se, fasti ng, QN, serum or plasm a glucose, fasting 89 mg/dL 70-100 Not Available [facility] (Lab) [address] [place], [address], 11/29/2019 20:40:35 11/26/19 20 11/26/2019 hsv (1+2) igg Ab, serum hsv 1 IgG, type spec 47.00 index 0.00-0 .90 high Negat omari <0.91 Equiv ocal 0.91 - 1.09 Posit omari >1.09 Note: Negat omari indic ates no antib odies detec tony to HSV-1 . Equiv ocal may sugge st early infec tion. If clini ashley appro priat e, retes t at later date. Posit omari indic ates antib odies detec tony to HSV-1 . [facility] [address] [facility] [place] [address] Not Available [facility] (Lab) [address] [place], [address], 11/29/2019 20:40:36 11/26/19 20 11/26/2019 hsv (1+2) igg Ab, serum hsv 2 IgG, type spec <0.91 index 0.00-0 .90 Negat omari <0.91 Equiv ocal 0.91 - 1.09 Posit omari >1.09 Note: Negat omari indic ates no antib odies detec tony to HSV-2 . Equiv ocal may sugge st early infec tion. If clini ashley appro priat e, retes t at later date. Posit omari indic ates antib odies detec tony to HSV-[address] . [address] [address] Not Available [facility] (Lab) [address] [place], [address], 11/29/2019 20:40:36 11/26/19 20 11/26/2019 dhea, serum dehydroepian drosterone 77 NG/dL 31-701 This test was devel oped and its perfo rmanc e sulema cteri stics deter mined by [facility]. It has not been clear ed or appro [place] by the Food and Drug Admin istra tion. Age 1 - 5 years 0 - 67 6 - 7 years 0 - 110 8 - 10 years 0 - 185 11 - 12 years 0 - 201 13 - 14 years 0 - 318 15 - 16 years 39 - 481 17 - 19 years 40 - 491 >19 years 31 - [address] [address] [facility] [address] Not Available [facility] (Lab) [address] [place], [address], 12/02/2019 13:36:55 11/26/19 20 11/26/2019 pap, IG + CT/NG + HR HPV gynecologica l specimen normal Final Outre ach Gynec ologi c Cytop athol ogy Repor t PATIE NT ALVAR EZ, VANES SA ACCES VINEET # [id number] [phone] PROCE DURE DATE 11/26 15:49 06/29 RECEI PT DATE 11/26 15:49 AGE / SEX 29 Y / F REPOR TONY DATE 12/02 16:24 LOCAT ION R320 Ralei gh Outre ach PROVI JOON(S ) TAMMY NGUYEN RT, RESEARCH STUDY ASSISTANT CLIEN T ID: [facility] N OUTRE ACH #: 0 CHART #: 0 Clini rocio Histo ry: Speci men: THINP REP IMAGE D PAP TEST, GC/CH L, HPV REGAR DLESS , CERVI ROCIO/E NDOCE RVICA L CYTOL OGIC DIAGN OSIS Satis facto ry for evalu ation . NEGAT OMARI FOR INTRA EPITH ELIAL LESIO N OR MALIG MARQUIS Predo minmisael ce of [place] bacil li consi stent with shift in vagin al anahy . Cellu joe butt es assoc iated with hyper kerat osis. HPV resul t repor tony below . ELECT LEANA JARA JEAN CARLOS D BY ARUN WATSON, SCT(A [facility]) Relat ed Labor atory Resul ts: Test Name Resul t Colle cted Chlam ydia HEMA Negat omari 11/26 Probe Gonor rhoea e Negat omari 11/26 HEMA Probe HPV Negat omari 11/26 Regar dless High Risk NOTE: The Pap test is a scree aydee test desig dara to aid in the detec tion of alley ligna nt and malig nant condi tions of the uteri ne cervi x. It shoul d not be used as the sole means of detec ting cervi rocio cance r. Both false posit omari and false negat omari resul ts occur . Perfo rming Lab (unle ss other otoole speci fied) : Nickolas Fraseru s, JEANMARIE Patel [address] [facility] Categ ory: NEG for IGNACIO Not Available Marilyn Cooper (Lab) [address] [place], [address], 12/02/2019 16:35:53 12/02/19 20 12/02/2019 ultra sound image s RAD [email or web address] [facility] [address] [facility] [address], [place], [address], 12/02/2019 14:21:27 12/02/19 20 12/02/2019 ultra sound image s RAD [email or web address] [facility] [address] [facility] [address], [place], [address], 12/02/2019 21:59:22 Result Notes None recorded. Problems Name Problem SNOMED Code Status Onset Date Resolution Date Notes Provider Name and Address Organization Details Recorded Time Abnormal cervical Papanicolaou smear 074935329 Active 2019 2017 NAI BURNS [address] [facility],[place], [address] , [facility] 0 14:36:01 Polycystic ovary syndrome 592642296 Active 2019 NAI BURNS [address] [facility],TALAT Brown, JEANMARIE Baz[place], [address] , [facility] 0 14:36:10 Problem Notes None recorded. Procedures Surgical History Date Name Laterality Status Provider Name and Address Organization Details Recorded Time 11/14/2017 Date of Last Pap Smear completed Not Available [facility] 11/26/2019 13:46:49 Imaging Results Imaging Date Name Status LastModified by Organiz ation Details LastModified Time 12/02/2019 ultrasound images completed [email or web address] [facility] [address] [facility] [address], [place], [address], 12/02/2019 14:21:27 12/02/2019 ultrasound images completed [email or web address] [facility] [address] [facility] [address], [place], [address], 12/02/2019 21:59:22 Procedure Notes None recorded. Medical Equipment None Reported. Allergies Allergen ID Allergen Name Allergen Category Reaction Reaction Severity Criticality Documentation Date Start Date Code Code System Note Provider Name and Address Organization Details Recorded Time 357086 acetamino phen medicatio n anaphylax is Not available Not available 11/26/2019 161 RxNorm Lia Valenzuela null, [facility] 0 14:09:39 Medications Name Sig Start Date Stop Date Status Note LastModified by Organization Details LastModified Time omeprazole 20 mg capsule,mando yed release TAKE 1 CAPSULE BY MOUTH ONCE DAILY FOR 30 DAYS active Not Available Not Available No t Available Vitals Date Recorded Body weight Body mass index (BMI) Body height Heart rate Systolic blood pressure Diastolic blood pressure Provider Name and Address Organization Details Last Updated DateTime 0 835460. 33 g 51 kg/m2 152.4 cm 94 /min 124 mm[Hg] 81 mm[Hg] Joann Silva (TERMED) [facility] 0 13:52:54 Date Recorded Body height Body mass index (BMI) Body weight Heart rate Systolic blood pressure Diastolic blood pressure Provider Name and Address Organization Details Last Updated DateTime 0 160.02 cm 46.1 kg/m2 125827. 09 g 93 /min 118 mm[Hg] 79 mm[Hg] Joann Silva (TERMED) [facility] 0 14:04:43 Social History Question Answer Notes LastModified by Organizat ion Details LastModified Time Tobacco Smoking Status Current Every Day Smoker Not Available [facility] 11/26/2019 13:46:48 How Much Tobacco Do You Smoke? 1 PPW [email or web address] Information not available 11/26/2019 Sex: Unknown Functional Status None recorded. Mental Status None recorded. Family History Relationship Description Onset Age of this Age Resolved Age Notes LastModified by Organization Details LastModified Time Mother Hypertensive disorder [email or web address] Not available 2019 14:11:42 Mother Type 1 diabetes mellitus [email or web address] Not available 2019 14:12:02 Mother Heart disease 64 [email or web address] Not available 2019 14:12:22 Father Asthma [email or web address] Not available 11/26/2019 14:12:40 Father Type 1 diabetes mellitus [email or web address] Not available 2019 14:12:49 Medical History Condition Response Weight Management/Obesity Y Gynecological History Statement/Question Response History of Sexually Transmitted Infectio n N Date of LMP 11/24/2019 HPV Test Negative History of Vulvar Dysplasia N Current Control Method None History of Cervical Dysplasia N History of PCOS Y Sexually Active Y History of Recurrent Ovarian Cysts N Date of Last Pap Smear 11/14/2017 History of Abnormal PAP Y History of Endometriosis N History of Fibroids N Obstetrics History GPAL:G 0 P 0 0 0 0 Past Encounters Encounter ID Performer Location Encounter Start Date Encounter Closed Date Diagnosis/Indication Diagnosis SNOMED-CT Code Diagnosis ICD10 Code Diagnosis Note [id number] GIO CUNNINGHAM MD [id number] LETTY MORAN [address] [place] [address] 05/22/2018 12:56:03 05/22/2018 14:38:20 [id number] NAI BURNS [id number] E [address] [place] [address] 11/26/2019 13:46:15 11/28/2019 08:15:37 Body mass index 40+ - severely obese 894118518 Z68.43 Gynecologi c examination 09047108 Z01.419 F/u annually. Breast care discussed. Reproducti ve care management 242503572 Z31.9 discussed fertility and next steps. Venereal d isease screening 352708666 Z11.3 Irregular periods 616616 07 N92.6 pt will return for u/s and lab review appt. if she has pcos we will consider metformin. [id number] NAI BURNS [id number] E [facility] [facility] [place] [address] 12/02/2019 13:51:21 12/08/2019 21:01:41 Irregular periods 82098611 N92.6 we reviewed negative u/s findings and reviewed all labs. wt loss referral informatio n provided.P t will continue with wt loss and will f/u if she has prolonged >90 dyas between cycles and when successful wt loss occurs. Answered pt questions and concerns. Health Concerns Section Related Observation LastModified by Organization Detai ls LastModified Time None Recorded Concern Status LastModified by Organization Details LastModified Time None Recorded Advance Directives Directive None Recorded Payers Encounter Date Sequence Insurance Name Policy Number Policy Narayan Covered Member ID Narayan Member ID Guarantor Name 11/26/2019 1 [place] [id number] Roxy Y Cage-Vi max [id number] Rxoy Y Cage-Vid ro 12/02/2019 1 [place] [id number] Roxy Y Cage-Vi max [id number] Roxy Y Cage-Vid ro Notes Date Note Type Note Provider Name and Address Organization Details Recorded Time 11/26/2019 text/html A 29 year old female presents for annual exam. Pt reports possible pcos but she never had a formal work-up. She desires an evaluation to determine the issue at hand. She reports lifelong cycle irregularities. She is ttc. Pt is trying to loose wt with lo carb diet successfully lost 10lb in 2 week. 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 Pt. desires std screening. Lmp-11/24/2019. NAI BURNS [address] [employer],[address], [place], [address], [place] [facility] 11/26/2019 15:09:56 12/02/2019 text/html Roxy 29yr her e to discuss U/s for possible pcos and lab results from last Ov. Pt was recently seen for new ae, std screen and discussion of long standing desire to conceive. We reviewed her desire to conceive for the past 5 years. Pt is actively trying to loose weight. No concerns or sx today Lmp-11/24/2019. Pap-11/26/2019 NAI BURNS [address] [employer],[address], [place], [address], [facility] 12/02/2019 17:00:14 OBGyn Episode No OBEpisode recorded.
[2024-12-23 08:02] LABS: HBsAGNum1 0.37 S/CO (0.00-0.99); HIV AB/AG Nonreactive (Nonreactive); HIV Num 1 0.16 S/CO (0.00-0.99); Hepatitis B Surface Antigen Negative (Negative); ~Hepatitis C Antibody Nonreactive (Nonreactive)
[2024-12-23 08:28] LABS: Syphilis Screen Nonreactive (Nonreactive)
== END 2024-12-22 12:27 | disposition home or self-care (01) ==
LOC: HO.HHCL 12:26
PROVIDERS: Visit Provider Advanced Practice Midwife
DX: Z01.419 Encounter for gynecological examination (general) (routine) without abnormal findings (principal); Z87.42 Personal history of other diseases of the female genital tract; Z11.3 Encounter for screening for infections with a predominantly sexual mode of transmission; E28.2 Polycystic ovarian syndrome; E66.01 Morbid (severe) obesity due to excess calories
CPT/HCPCS: 36415; 86780; 86803; 87340; 87389; 99395; 99459